=== PATIENT | female | born 1960 | race Two or more races ===

== ENCOUNTER 2023-01-18 10:09 | Inpatient (IN) | payer OTHER ==
[~2023-01-18] VITALS: Ht 154.9 cm; Wt 71.2 kg
[~2023-01-18 10:09] MED LIST: HUMULIN N100 UNIT/2; SYNTHROID50 MCG PO
[2023-01-18] MEDS ORDERED: JANTOVEN1 MG (10:42)
[2023-01-18 14:12] LABS: HEMOGLOBIN 10.3 g/dL (12.0-15.00); MEAN CELL VOLUME 93.7 fL (80.00-100.00); MEAN CORPUSCULAR HGB CONC 33.1 g/dl (32.0-36.0); PLATELET COUNT 191 K/uL (150-450); RED BLOOD COUNT 3.31 M/uL (4.00-6.00)
[2023-01-18 14:52] LABS: ALBUMIN 3.3 gm/dL (3.4-5.0); BILIRUBIN TOTAL 0.29 mg/dL (0.3-1.2); CALCIUM 9.3 mg/dL (8.5-10.1); GFR 7.82; GLOBULINA 3.8 G/DL (2.4-3.5); MAGNESIUM 2.3 mg/dL (1.8-2.4); POTASSIUM 3.47 mEq/L (3.5-5.1); TOTAL PROTEIN 7.1 gm/dL (6.4-8.2)
[2023-01-18 15:18] LABS: CREATININE SERUM 5.54 mg/dL (0.55-1.02)
[2023-01-18 21:12] LABS: INR 1.45; PARTIAL THROMBOPLASTIN TIME 34.8 SECONDS (22.0-34.0); PROTHROMBIN TIME 14.8 SECONDS (9.0-11.5)
[2023-01-20 08:29] LABS: HEMOGLOBIN 9.7 g/dL (12.0-15.00); MEAN CORPUSCULAR HEMOGLOBIN 31.7 pg (27.00-32.0); MEAN CORPUSCULAR HGB CONC 33.3 g/dl (32.0-36.0); PLATELET COUNT 171 K/uL (150-450); RED BLOOD COUNT 3.05 M/uL (4.00-6.00); RED CELL DISTRIBUTION WIDTH 14.9 % (11.5-14.5)
[2023-01-20 08:51] LABS: ALBUMIN 3.1 gm/dL (3.4-5.0); CALCIUM 8.5 mg/dL (8.5-10.1); GFR 4.58; PHOSPHOROUS 5.3 mg/dL (2.5-4.9)
[2023-01-20 09:05] LABS: CREATININE SERUM 8.8 mg/dL (0.55-1.02); POTASSIUM 4.3 mEq/L (3.5-5.1)
[2023-01-22 08:05] LABS: HEMATOCRIT 26.7 % (36.0-45.00); HEMOGLOBIN 9.1 g/dL (12.0-15.00); MEAN CELL VOLUME 93.7 fL (80.00-100.00); MEAN CORPUSCULAR HEMOGLOBIN 31.9 pg (27.00-32.0); MEAN CORPUSCULAR HGB CONC 34.1 g/dl (32.0-36.0); PLATELET COUNT 141 K/uL (150-450); RED BLOOD COUNT 2.84 M/uL (4.00-6.00); RED CELL DISTRIBUTION WIDTH 14.8 % (11.5-14.5)
[2023-01-22 08:22] LABS: BILIRUBIN TOTAL 0.33 mg/dL (0.3-1.2); CALCIUM 8.3 mg/dL (8.5-10.1); GFR 6.19; GLOBULINA 3.2 G/DL (2.4-3.5); POTASSIUM 3.81 mEq/L (3.5-5.1); TOTAL PROTEIN 6.2 gm/dL (6.4-8.2)
[2023-01-22 09:26] LABS: CREATININE SERUM 6.78 mg/dL (0.55-1.02)
[2023-01-22 17:01] LABS: INR 1.09; PROTHROMBIN TIME 11.4 SECONDS (9.0-11.5)
[2023-01-24 08:35] LABS: INR 1.05; PARTIAL THROMBOPLASTIN TIME 37.6 SECONDS (22.0-34.0)
[2023-01-25 07:37] LABS: INR 1.3; PROTHROMBIN TIME 13.4 SECONDS (9.0-11.5)
[2023-01-26 08:56] LABS: INR 1.93
[2023-01-26 08:58] LABS: PARTIAL THROMBOPLASTIN TIME 50.9 SECONDS (22.0-34.0); PROTHROMBIN TIME 19.3 SECONDS (9.0-11.5)
[2023-01-27 08:11] LABS: INR 2.74
[2023-01-27 08:16] LABS: PARTIAL THROMBOPLASTIN TIME 54.6 SECONDS (22.0-34.0); PROTHROMBIN TIME 26.7 SECONDS (9.0-11.5)
== END 2023-01-27 11:36 | disposition home or self-care (01) | DRG 347 ==
LOC: ER 10:09 → SEC-K 23:06 → MEDI 23:06 → SURG 23:06 → MEDI 01-19 01:54 → SURG 01-19 18:51 → SURH 01-22 10:42
PROVIDERS: Colon & Rectal Surgery; Emergency Medicine; General Practice; Internal Medicine; ADMIT Internal Medicine; ATTEND Internal Medicine
PROC: 0D8R3ZZ Division of Anal Sphincter, Percutaneous Approach (ICD-10-PCS; principal; 2023-01-19)
PROC: 3E0F7GC Introduction of Other Therapeutic Substance into Respiratory Tract, Via Natural or Artificial Opening (ICD-10-PCS; 2023-01-19)
DX: K60.2 Anal fissure, unspecified (principal); N18.6 End stage renal disease; I12.0 Hypertensive chronic kidney disease with stage 5 chronic kidney disease or end stage renal disease; I48.0 Paroxysmal atrial fibrillation; Z99.2 Dependence on renal dialysis; D64.9 Anemia, unspecified